=== PATIENT | male | born 2005 | race Caucasian/White ===

== ENCOUNTER 2025-06-23 14:08 | Emergency (ER) | payer BC, SELFPAY ==
[2025-06-23 14:12] VITALS: BP 108/67
--- NOTE | 2025-06-23 15:45 | ED.GENMED ---
History of Present Illness
General
Chief Complaint: Musculo-Skeletal Complaint
Source: patient
Time Seen by Provider: 06/23/25 15:14
History of Present Illness
History of Present Illness:
19-year-old male was playing soccer just prior to presentation, planted his foot and then twisted, causing him to fall to the ground making impact with his left knee. He describes pain specifically in the medial aspect of his left knee. He denies
other injury such as head injury, loss conscious, neck pain, numbness, tingling, chest pain, shortness of breath, abdominal pain, nausea, vomiting, hip pain, etc. Patient denies prior knee injury. Pain is worse when he tries to flex his knee
Past History
Past History
ED Past Medical History: None
Social History
Alcohol: None
Drug: None
Employment: Employed
Phy Exam
Physical Exam
Physical Exam:
GENERAL: Alert , in no apparent distress, pleasant
EYE: pupils equal and reactive
NECK: Supple, no significant adenopathy.
ENT: o/p clr, mmm, no signs of head or facial injury.
CARDIAC: Regular rate and rhythm .
LUNGS: Clear breath sounds bilaterally, no acute respiratory distress, no wheezes/rales/rhonchi
ABDOMEN: Soft, without focal tenderness, no r/g, no cvat
NEUROLOGICAL: Alert and oriented, no focal neuro deficits
SKIN: Warm and dry, skin intact.
MUSCULOSKELETAL: 2+ dp/pt pulses L foot, well perfused. There is TTp noted at medical>lateral aspect inferior L knee with limitation in ROM due to pain, difficulty to assess jont laxity due to pain with maneuvers. No deformity.
PSYCH: Normal and appropriate interaction.
Course
Orders/Labs/Results
Orders:
Orders
06/23/25 14:10
Knee, Left 4 or More Views [CR Knee - Left 4 Or More View*] Urgent
Comment:
Reason For Exam: pain injury
Vital Signs
Initial and Last Documented VS:
Initial Vital Signs
Temp Pulse Resp BP Pulse Ox
98.6 F 83 18 108/67 98
06/23/25 14:12 06/23/25 14:12 06/23/25 14:12 06/23/25 14:12 06/23/25 14:12
Last Documented Vital Signs
Temp Pulse Resp BP Pulse Ox
98.6 F 83 18 108/67 98
06/23/25 14:12 06/23/25 14:12 06/23/25 14:12 06/23/25 14:12 06/23/25 14:12
*Pulse Oximetry
SaO2: 98
Oxygen Mode of Delivery: Room air
Patient hypoxic: no
*Critical Care Note
Total Time (30-74mins, 75-104mins- exclusive of procedures): Not Applicable
Update Note
Update Note:
Patient presents to the Emergency Department with ___knee injury
Number and Complexity of Problems Addressed at the Encounter
� Chronic conditions affecting care:
� Acute Exacerbation and/or Progression of Chronic Illness:
� Differential Diagnosis includes: But not limited to fracture, meniscal injury, ligament injury, muscle strain, etc. etc.
Amount and/or Complexity of Data to be Reviewed and Analyzed
� I performed an independent evaluation of and my interpretation is:
EKG:
CT:
Xrays: Read by me and confirmed by radiology no fracture or dislocation noted
Laboratory Studies:
Other:
� Review of other/old records reveals:
� Clinical information was obtained by an independent historian: Mom who is at bedside
� Prescriptions/Medications Considered but not given:
� Further testing considered but not performed:
Risk of Complications and/or Morbidity or Mortality of Patient Management
� Social determinants of health affecting care:
� Discussion with other providers (PCP, Hospitalists, Consultants, etc):
� Escalation of care including admission/observation vs risk of discharge considered: Patient neurovascularly intact, minimal concern for dislocation, compartment syndrome, etc. I did make patient aware that there is still a
possibility of meniscal or ligament injury despite x-ray not demonstrating fracture or other abnormalities. He was given a copy of the x-ray report, knee immobilizer, nonweightbearing, follow-up with Ortho this week
ED Attending Note
-
Portions of this chart may have been created with voice recognition software.� Occasional wrong word or��sound alike� substitutions may have occurred due to the inherent limitations of voice recognition software.
Discharge Plan
Departure
Patient Disposition: Home (Routine Discharge)
Date of Disposition: 06/23/25
Time of Disposition: 15:46
Patient with high blood pressure during this ER visit?: No
Condition: Good
Discharge Problem:
Injury of knee
Instructions: How to Use Crutches, Knee Immobilizer (DC), Knee Sprain (DC)
Referrals:
Mikey Agee MD [Active, Orthopedics] - Follow up in 2-3 days
UNKNOWN - PT DOES,NOT KNOW [Family Provider]
Stand Alone Forms: Return to Work
Activity Restrictions/Additional Instructions:
ALTHOUGH YOUR X-RAY DOES NOT SHOW A FRACTURE, IT IS STILL POSSIBLE THAT YOU HAVE FURTHER INJURY TO YOUR KNEE SUCH LIGAMENT OR CARTILAGE INJURY. YOU SHOULD BE NONWEIGHTBEARING UNTIL YOU ARE SEEN BY THE ORTHOPEDIC DOCTOR, PLEASE MAKE ARRANGEMENTS
TO SEE THIS DOCTOR THIS WEEK. IF YOU DEVELOP NUMBNESS, FEVER, INCREASING OR NEW PAIN, INCREASING OR NEW SWELLING, OR OTHER WORRISOME SIGNS, PLEASE RETURN TO THE ER IMMEDIATELY
Interventions
Interventions:
*Risk Screen - Suicide Last Done: 06/23/25 14:12
Discharge Date and Time
Print Language: [email or web address]
[2025-06-23] MEDS: MOTRIN 400 MG PO (16:32)
[2025-06-23 16:45] VITALS: BMI 28.2
== END 2025-06-23 16:59 | disposition home or self-care (01) ==
LOC: EMR 14:08
PROVIDERS: EMERGENCY PHYSICIAN Emergency Medicine
DX: S89.92XA Unspecified injury of left lower leg, initial encounter (principal); X58.XXXA Exposure to other specified factors, initial encounter; Y92.322 Soccer field as the place of occurrence of the external cause; Y93.66 Activity, soccer
CPT/HCPCS: 99282; 73564